=== PATIENT | female | born 1960 | race Caucasian/White ===

== ENCOUNTER 2016-10-26 14:07 | Emergency (ER) | payer OTHER ==
--- NOTE | ~2016-10-26 | CR169 ---
[facility] A Service of [facility] RADIOLOGY TEXT RESULTS PATIENT: YUAN THOMPSON LOCATION: [facility] : 60 UNIT #: [id number] AGE: [address]: Glen Blood MD SEX: F ORDER DR: [id number] [facility] [address]. [place], [place] [address] [id number] E MR#: [id number] Acc #: [id number] NAME: YUAN THOMPSON : 1960 SEX: F STUDY DATE/TIME: 10/26/2016 15:40 UNIT: [facility] ROOM: STUDY DESCRIPTION: CR Knee 2 Views Lt Attending Physician: Glen Blood M.D. Ordering Physician: Glen Blood M.D. Primary Care Physician: Ml Juarez M.D. MEDICAL IMAGING REPORT This report is preliminary unless electronic signature is present EXAM Left knee series 10/26/2016 HISTORY Posterior elbow pain. Numbness in left foot. Pain in knee radiating to dewitt. Bruising on knee and dewitt. Fall today. TECHNIQUE AP and lateral radiographs of the left knee are presented. FINDINGS No fracture or traumatic malalignment. The joint spaces are intact. There are some ill-defined patchy densities in the subcutaneous fat, lateral aspect of the knee. This could be a reflection of posttraumatic edema or contusion. There is no soft tissue defect, subcutaneous air or radiodense foreign body. Please correlate with the exam. Dictated by... Eleazar Ortega M.D. THIS IS AN ELECTRONICALLY VERIFIED REPORT Eleazar Ortega M.D. at 10/28/2016 11:31 AM SHEN/margaret TD: 10/27/2016 00:22 JOB #: [id number] MEDICAL IMAGING REPORT Page 1 of 1 COPY
--- NOTE | ~2016-10-26 | CR20 ---
[facility] A Service of [facility] & [facility] RADIOLOGY TEXT RESULTS PATIENT: YUAN THOMPSON LOCATION: [facility] : 60 UNIT #: [id number] AGE: [address]: Glen Blood MD SEX: F ORDER DR: [id number] [facility] [address] [place], [place] [address] [id number] E MR#: [id number] Acc #: [id number] NAME: YUAN THOMPSON : 1960 SEX: F STUDY DATE/TIME: 10/26/2016 15:43 UNIT: [facility] ROOM: STUDY DESCRIPTION: CR Ankle Min 3 Views Lt Attending Physician: Glen Blood M.D. Ordering Physician: Glen Blood M.D. Primary Care Physician: Ml Juraez M.D. MEDICAL IMAGING REPORT This report is preliminary unless electronic signature is present EXAM Left ankle series, 10/26/16. HISTORY Trauma, posterior elbow pain/numbness and left foot pain and knee radiates to dewitt. Bruising on knee and dewitt. Happened today. Status post fall. FINDINGS AP, lateral and oblique radiographs of the left ankle are presented. No traumatic fracture or malalignment. No soft tissue defect, subcutaneous air or radiopaque foreign body. Dictated by... Eleazar Ortega M.D. THIS IS AN ELECTRONICALLY VERIFIED REPORT Eleazar Ortega M.D. at 10/28/2016 11:31 AM SHEN/anna TD: 10/26/2016 23:54 JOB #: [id number] MEDICAL IMAGING REPORT Page 1 of 1 COPY
--- NOTE | ~2016-10-26 | CR93 ---
[facility] A Service of [facility] & [facility] RADIOLOGY TEXT RESULTS PATIENT: YUAN THOMPSON LOCATION: [facility] : 60 UNIT #: [id number] AGE: [address]: Glen Blood MD SEX: F ORDER DR: [id number] [facility] [address]. [place], [place] [address] [id number] E MR#: [id number] Acc #: [id number] NAME: YUAN THOMPSON : 1960 SEX: F STUDY DATE/TIME: 10/26/2016 15:37 UNIT: [facility] ROOM: STUDY DESCRIPTION: CR Elbow Min 3 Views Lt Attending Physician: Glen Blood M.D. Ordering Physician: Glen Blood M.D. Primary Care Physician: Ml Juarez M.D. MEDICAL IMAGING REPORT This report is preliminary unless electronic signature is present EXAM Left elbow series HISTORY Posterior elbow pain. Numbness left foot. Pain in knee radiates to park. Park bruising. Knee bruising. Fall today. FINDINGS AP, lateral and oblique radiographs of the left elbow show normal bony mineralization. No traumatic fracture or malalignment. Joint spaces intact. No soft tissue defect, subcutaneous air or radiodense foreign body. No joint effusion. Dictated by... Eleazar Ortega M.D. THIS IS AN ELECTRONICALLY VERIFIED REPORT Eleazar Ortega M.D. at 10/28/2016 11:31 AM Junie TD: 10/27/2016 00:24 JOB #: [id number] MEDICAL IMAGING REPORT Page 1 of 1 COPY
[~2016-10-26 14:07] MED LIST: BIAXIN PO; CYMBALTA; DULCOLAX5 MG PO; DULOXETINE HCL30 MG PO; HUMIBID DM1 CAP.SR . PO; LORTAB 7.5-5001 TAB PO; LYRICA25 MG PO; NAPROSYN500 MG PO; NOLVADEX PO; PATIENT'S PHARMACY; PEPCID40 MG PO; PREDNISONE PO; PRILOSEC; PRILOSEC PO; PROZAC PO; VICODIN 5/500 T1 TAB PO; VITAMIN D400 UNI1 PO; VOLTAREN75 MG PO; [UNRECOGNIZED DRUG - OTHER] PO
== END 2016-10-26 17:40 | disposition home or self-care (01) ==
LOC: CED 14:07
DX: S80.02XA Contusion of left knee, initial encounter (principal); S70.02XA Contusion of left hip, initial encounter; S90.32XA Contusion of left foot, initial encounter; Z88.8 Allergy status to other drugs, medicaments and biological substances; W01.0XXA Fall on same level from slipping, tripping and stumbling without subsequent striking against object, initial encounter; Y92.69 Other specified industrial and construction area as the place of occurrence of the external cause; Y99.0 Civilian activity done for income or pay; Z88.5 Allergy status to narcotic agent; Z91.040 Latex allergy status
CPT/HCPCS: 29530; 29540; 73080; 73560; 73610; 99284

== ENCOUNTER 2016-12-31 17:26 | Emergency (ER) | payer BC ==
--- NOTE | ~2016-12-31 | CR116 ---
[facility] A Service of [facility] & [facility] RADIOLOGY TEXT RESULTS PATIENT: YUAN THOMPSON LOCATION: [facility] : 60 UNIT #: [id number] AGE: [address]: SANCHEZ GONZALEZ SEX: F ORDER DR: [id number] [address] [address] [id number] E MR#: [id number] Acc #: [id number] NAME: YUAN THOMPSON : 1960 SEX: F STUDY DATE/TIME: 12/31/2016 17:57 UNIT: [facility] ROOM: STUDY DESCRIPTION: CR Finger 2 View Thumb Lt Attending Physician: Sanchez Gonzalez Ordering Physician: Physician Non-Staff Primary Care Physician: Primary Care Physician No MEDICAL IMAGING REPORT This report is preliminary unless electronic signature is present. EXAM Left thumb, 12/31/2016 INDICATION Pain since this morning. No known injury. History of breast cancer. TECHNIQUE 2 views left thumb COMPARISON No comparisons FINDINGS Mild degenerative change of the DIP joint but no acute fracture or retained opaque foreign body. No focal erosive change. IMPRESSION Degenerative change of the DIP joint, otherwise negative. Dictated by... Jesus Biag M.D. THIS IS AN ELECTRONICALLY VERIFIED REPORT Jesus Baig M.D. at 01/01/2017 11:04 PM Teryr TD: 01/01/2017 08:24 JOB #: [id number] MEDICAL IMAGING REPORT Page 1 of 1
== END 2016-12-31 20:14 | disposition home or self-care (01) ==
LOC: SED 17:26
DX: M79.645 Pain in left finger(s) (principal); M25.532 Pain in left wrist; K21.9 Gastro-esophageal reflux disease without esophagitis; F32.9 Major depressive disorder, single episode, unspecified; Z88.5 Allergy status to narcotic agent; Z91.040 Latex allergy status
CPT/HCPCS: 29125; 29515; 73140; 96372; 99283; J1885